=== PATIENT | male | born 1945 | race Caucasian/White ===

== ENCOUNTER → 2025-09-14 09:00 | Outpatient (BNVA) | payer MEDICARE, SELFPAY | PROVIDERS: PCP Internal Medicine Medical Oncology; Visit Provider Nurse Practitioner Family | DX: L40.8 Other psoriasis (principal); L40.0 Psoriasis vulgaris; D48.5 Neoplasm of uncertain behavior of skin; L57.0 Actinic keratosis | CPT/HCPCS: 11102; 17000; 99204 ==